=== PATIENT | female | born 2000 | race Caucasian/White ===

== ENCOUNTER 2025-04-28 15:15 | Emergency (ER) | payer MEDICAID, SELFPAY ==
[2025-04-28 15:16] VITALS: BP 169/131; PULSE 123; RESP 20; TEMP 36.4; O2SAT 100
--- NOTE | 2025-04-28 15:54 | EX.ED.DYSGE1 ---
HPI History of Present Illness Chief Complaint: Laceration Narrative Narrative: Patient is a 24-year-old female with a history of POTS and Vahid-Danlos syndrome (hypermobility type) presenting with a laceration to the right thumb. - Sustained a laceration to the volar aspect of the right thumb approximately 1 hour ago. - Injury occurred while handling a cat food can lid. - Denies significant pain, stating she has a high pain tolerance. - Reports mild numbness but denies complete loss of sensation. - Last tetanus vaccination was over 5 years ago. - Denies other medical problems; no daily medications reported. PFSH PFSH Allergy/AdvReac Type Severity Reaction Status Date / Time cefdinir (From Omnicef) Allergy Intermediate Rash Verified 04/28/25 15:18 latex Allergy Intermediate Rash Verified 04/28/25 15:18 naproxen (From Naprosyn) Allergy Intermediate Rash Verified 04/28/25 15:18 red dye Allergy Intermediate Vomiting Verified 04/28/25 15:18 Surgical History History of orthopedic surgery Social History Smoking Status: Never smoker ROS ROS ED ROS Narrative Musculoskeletal: (-) right thumb pain Skin: (+) laceration right thumb Neurological: (+) right thumb numbness EXAM Physical Exam Narrative Exam Narrative: General: No acute distress. MSK/Ext: Laceration on volar aspect of right thumb measuring approximately 1.5 cm; full flexion and extension of right thumb; sensation intact to median, ulnar, and radial nerve distribution bilaterally. Const Vital Signs: 04/28/25 15:16 Temperature 97.6 F L Temperature Source Temporal Pulse Rate 123 H Respiratory Rate 20 H Blood Pressure 169/131 H Blood Pressure Mean 143 Pulse Ox 100 Oxygen Delivery Method Room Air MDM MDM MDM Narrative Medical decision making narrative: Patient is a 24-year-old female who presented to the emergency department chief complaint of right thumb laceration. On the differential diagnose includes but not limited to thumb laceration, abrasion. Patient had laceration repaired here in the emergency department see procedure note for separate details tetanus shot was updated. She advised to keep the area dry and clean and watch out for signs of infection. She was advised to have these removed in approximately 7 days. She is agreeable to plan as well as family members at bedside all question concerns answered she was discharged home in stable condition. Procedure note Procedure name: Laceration repair Indication: Reduce risk of infection Location: Right thumb laceration volar aspect 1-1/2 cm in length Preprocedure diagnosis: Laceration Postprocedure diagnosis: Repaired laceration Informed consent was obtained prior to procedure started. Procedure: The appropriate timeout was taken. The area was prepped and draped in usual sterile fashion. Local anesthesia was achieved using 2 cc of lidocaine 1% without epinephrine. Wound was copiously irrigated. 3 4-0 Ethilon interrupted sutures were placed. Estimated blood loss was less than 0.5 mL. Dressing was applied to the area and anticipatory guidance, as well as standard postprocedure care was explained. Return precautions are given. Patient tolerated procedure well without any complications. Follow-up visit for suture removal and evaluation of laceration. Discharge Plan Triage Chief Complaint: Laceration ED Provider: Ronan Freed Dx/Rx/DC Orders Clinical Impression: Laceration of thumb Primary Care Provider: Glenroy Crowell Referrals: Glenroy Crowell DO [Primary Care Provider, Family Practice] Activity Restrictions/Additional Instructions: Heavy sutures removed in approximately 7 days keep the area dry and clean you may let warm soapy water run over these do not soak them. Watch out for signs infection. Have your doctor take them out. Return with worsening symptoms or any concerns your tetanus shot was updated Print Language: Estonian Disposition Disposition: Home, Self Care
[2025-04-28] MEDS: Lidocaine 1% (20 ml mdv) 20 ML Vial 10 ML INFILT (16:03)
[2025-04-28 17:02] VITALS: BP 132/66; PULSE 86; RESP 16; TEMP 36.6; O2SAT 99
== END 2025-04-28 17:03 | disposition home or self-care (01) ==
PROVIDERS: Emergency Provider Emergency Medicine; PCP Family Medicine; Visit Provider Emergency Medicine
DX: S61.011A Laceration without foreign body of right thumb without damage to nail, initial encounter (principal); X58.XXXA Exposure to other specified factors, initial encounter
CPT/HCPCS: 12001; 90471; 90715; 99283